=== PATIENT | male | born 1950 | race Caucasian/White ===

== ENCOUNTER 2024-10-17 16:12 | Emergency (ER) | payer MEDICARE, BC ==
[~2024-10-17] VITALS: Ht 172.7 cm; Wt 77.1 kg
[2024-10-17 16:21] VITALS: TEMP 98.3
[2024-10-17] MEDS ORDERED: ACETAMINOPHEN ES 500 MG TABLET ONE (16:57)
[2024-10-17] MEDS: ACETAMINOPHEN ES 500 MG TABLET PO ONE (16:59)
[2024-10-17 18:33] VITALS: BP 122/70; O2SAT 98
== END 2024-10-17 18:31 | disposition home or self-care (01) ==
LOC: ER 16:16
DX: S09.90XA Unspecified injury of head, initial encounter (principal); M79.644 Pain in right finger(s); E11.9 Type 2 diabetes mellitus without complications; F32.A Depression, unspecified; K21.9 Gastro-esophageal reflux disease without esophagitis; E78.5 Hyperlipidemia, unspecified; W22.09XA Striking against other stationary object, initial encounter; Y93.89 Activity, other specified; Y92.89 Other specified places as the place of occurrence of the external cause; Y99.8 Other external cause status
CPT/HCPCS: 70450-TC; 72125-TC; 73130-TC